=== PATIENT | female | born 1940 | race Caucasian/White ===

== ENCOUNTER 2021-08-23 14:22 | Emergency (ER) | payer MEDICARE, MEDICAID ==
[~2021-08-23] VITALS: Ht 157.5 cm; Wt 59.0 kg
[2021-08-23] MEDS ORDERED: PANT40TA51 PO (14:36)
[2021-08-23] MEDS ORDERED: ACETAMINOPHEN 325MG TABLET PO STA (14:36)
[2021-08-23] MEDS ORDERED: OMEP20TA2 PO (14:36)
[2021-08-23] MEDS ORDERED: CELE200C PO (14:36)
[2021-08-23] MEDS ORDERED: TOPUD PO (14:36)
[2021-08-23] MEDS ORDERED: drisdol (14:36)
[2021-08-23] MEDS ORDERED: SIMV40TA2 PO (14:36)
[2021-08-23] MEDS ORDERED: CALC-3 PO (14:36)
[2021-08-23] MEDS ORDERED: CHOL4000 (14:36)
[2021-08-23] MEDS ORDERED: PROT40 PO (14:36)
[2021-08-23] MEDS ORDERED: NIFE90TA47 PO (14:36)
[2021-08-23] MEDS ORDERED: HYDROCODONE/ACETAMINOPHEN 5/325MG TABLET PO ONE (15:00)
[2021-08-23] MEDS ORDERED: IBUP-2028 MT (15:45)
[2021-08-23] MEDS ORDERED: ACET-2708 MT (15:45)
[2021-08-23 15:52] VITALS: BP 148/95
== END 2021-08-23 15:54 | disposition home or self-care (01) ==
LOC: ER 14:22
DX: S09.90XA Unspecified injury of head, initial encounter (principal); R07.81 Pleurodynia; I10 Essential (primary) hypertension; J45.909 Unspecified asthma, uncomplicated; Z90.49 Acquired absence of other specified parts of digestive tract; W18.30XA Fall on same level, unspecified, initial encounter; Y93.01 Activity, walking, marching and hiking; Y92.89 Other specified places as the place of occurrence of the external cause; Y99.8 Other external cause status
CPT/HCPCS: 70450; 71101; 73060; 99284; J7040